=== PATIENT | male | born 1995 | race Two or more races ===

== ENCOUNTER 2024-02-28 04:46 | Emergency (ER) | payer OTHER ==
[~2024-02-28] VITALS: Ht 175.3 cm; Wt 75.0 kg
[2024-02-28 05:10] VITALS: PULSE 108; RESP 22; O2SAT 97
[2024-02-28] MEDS: SODIUM CHLORIDE 0.9% 1,000 ML IV ONE ×2 (05:25→07:56)
[2024-02-28] MEDS: LORazepam 2MG/ML-1ML VIAL IV ONE (05:25)
[2024-02-28 05:49] LABS: Chloride 103 mmol/L (98-107); Potassium 3.4 mmol/L (3.5-5.1); Sodium 138 mmol/L (136-145)
[2024-02-28 05:50] LABS: Anion Gap 16 (5-15); Calcium 9.6 mg/dL (8.7-10.4); Carbon Dioxide 19 mmol/L (20-30)
[2024-02-28 05:55] LABS: Glucose 109 mg/dL (74-106)
[2024-02-28 06:01] LABS: BUN/Creatinine Ratio 5.3 (10.0-20.0); Blood Urea Nitrogen < 5 mg/dL (9-23)
[2024-02-28 06:12] LABS: Blood Alcohol 136.8 mg/dL (<10)
[2024-02-28 07:45] VITALS: TEMP 98.9
[2024-02-28] MEDS: THIAMINE 100mg/ml INJ (200mg/2ml VIAL) IV ONE (07:56)
[2024-02-28 10:03] LABS: Amphetamine Screen, Urine Pos (NEGATIVE); Benzodiazephine Screen, Urine Neg (NEGATIVE)
[2024-02-28 10:04] LABS: Barbiturate Scree,Urine Neg (NEGATIVE); Cannabinoid Screen, Urine Neg (NEGATIVE); Cocaine Screen, Urine Neg (NEGATIVE); Opiate Scree,Urine Neg (NEGATIVE); Phencyclidine Screen, Urine Neg (NEGATIVE)
[2024-02-28] MEDS: LORazepam 0.5 MG TAB PO ONE (10:32)
[2024-02-28 10:44] VITALS: BP 152/99; PULSE 106; RESP 20; O2SAT 95
== END 2024-02-28 10:47 | disposition home or self-care (01) ==
LOC: ER 04:46 → EDBD 04:46 → ER 10:47
DX: F14.90 Cocaine use, unspecified, uncomplicated (principal); F10.10 Alcohol abuse, uncomplicated; F41.9 Anxiety disorder, unspecified; F17.210 Nicotine dependence, cigarettes, uncomplicated; F12.90 Cannabis use, unspecified, uncomplicated; Z88.0 Allergy status to penicillin; Y90.6 Blood alcohol level of 120-199 mg/100 ml
CPT/HCPCS: 36415; 80048; 80307; 80320; 93005; 96361; 96374; 96375; 99285; J2060; J3411; J7030; 96376

== ENCOUNTER 2025-01-23 04:18 | Emergency (ER) | payer MEDICAID, OTHER ==
[~2025-01-23] VITALS: Ht 172.7 cm; Wt 71.2 kg
--- NOTE | 2025-01-23 04:52 | ED.PDOC ---
Back pain HPI HPI Comments PATIENT C/O BILAT FEET PAIN X2 WEEKS. PATIENT STATES WAS RECENTLY DISCHARGED FROM THE HOSPITAL 2 WEEKS AGO FOR LIVER PROBLEMS WAS PRESCRIBED GABAPENTIN FOR BILATERAL FEET PAIN NEUROPATHY STATES THE GABAPENTIN IS NOT WORKING. SCHEDULE AN APPOINTMENT ON WITH HIS PCP. REQUESTING MEDICATION FOR HIS PAIN. Chief Complaint: Lower Extremity Time Seen by MD: 04:42 Reviewed Notes: Nurses Notes, Medications, Allergies Allergies: Coded Allergies: Penicillins (Verified Allergy, Unknown, 02/28/24) Information Source: Patient Mode of Arrival: Ambulatory Past Medical History PAST MEDICAL HISTORY: Denies Surgical History: Denies all surgeries Family History Family History: No family hx of Cancer, No family hx of DM, No family hx of Heart luis Social History Smoker: Cigarettes Alcohol: Occasionally Drugs: Cocaine, Marijuana Lives In: Home Constitutional: denies: chills, diaphoresis, fatigue, fever, malaise, sweats, weakness, others EENTM: denies: blurred vision, double vision, ear bleeding, ear discharge, ear drainage, ear pain, ear ringing, eye pain, eye redness, hearing loss, mouth pain, mouth swelling, nasal discharge, nose bleeding, nose congestion, nose pain, photophobia, tearing, throat pain, throat swelling, voice changes, others Respiratory: denies: cough, hemoptysis, orthopnea, SOB at rest, shortness of breath, SOB with excertion, stridor, wheezing, others Cardiovascular: denies: chest pain, dizzy spells, diaphoresis, Dyspnea on exertion, edema, irregular heart beat, left arm pain, lightheadedness, palpitations, PND, syncope, others Gastrointestinal: denies: abdomen distended, abdominal pain, blood streaked bowels, constipated, diarrhea, dysphagia, difficulty swallowing, hematemesis, melena, nausea, poor appetite, poor fluid intake, rectal bleeding, rectal pain, vomiting, others Genitourinary: denies: burning, dysuria, flank pain, frequency, hematuria, inco ntinence, penile discharge, penile sore, pain, testicle pain, testicle swelling, urgency, others Neurological: denies: dizziness, fainting, headache, left sided numbness, left sided weakness, numbness, paresthesia, pre-existing deficit, right sided numbness, right sided weakness, seizure, speech problems, tingling, tremors, weakness, others Musculoskeletal: reports: others (BILATERAL FOOT PAIN ); denies: back pain, gout, joint pain, joint swelling, muscle pain, muscle stiffness, neck pain Integumetry: denies: bruises, change in color, change in hair/nails, dryness, laceration, lesions, lumps, rash, wounds, others Allergic/Immunocompromised: denies: Difficulty Healing, Frequent Infections, Hives, Itching, others Hematologic/Lymphatic: denies: anemia, blood clots, easy bleeding, easy bruising, swollen glands, others Endocrine: denies: excessive hunger, excessive sweating, excessive thirst, excessive urination, flushing, intolerance to cold, intolerance to heat, unexplained weight gain, unexplained weight loss, others Psychiatric: denies: anxiety, bipolar disorder, depression, hopeless, panic disorder, schizophrenia, sleepless, suicidal, others Physical Exam General Appearance: No Apparent Distress, Normal HEENT: Pharynx Normal Neck: Full Range of Motion, Non-Tender Respiratory: Lungs Clear, No Respiratory Distress, Normal Breath Sounds Cardiovascular: No Murmur, Normal Peripheral Pulses, Regular Rate/Rhythm Breast Exam: Deferred Gastrointestinal: Non Tender, Soft Genitalia: Deferred Pelvic: Deferred Rectal: Deferred Extremities: Normal capillary refill, Normal inspection, Normal range of motion , Non-tender, No pedal edema Musculoskeletal : Apperance: Normal Neurologic: Alert, No Motor Deficits, Normal Affect, Normal Mood, No Sensory Deficits Cerebellar Function: Normal Reflexes: Normal Skin: Dry, Normal Color, Warm Lymphatic: No Adenopathy Was a procedure done? Was a procedure done?: No Back Pain Differential Dx Differential Diagnosis: Musculoskeletal Pain X-Ray, Labs, Meds, VS Vital Signs Date Time Temp Pulse Resp B/P (MAP) Pulse Ox O2 Delivery O2 Flow Rate FiO2 01/23/25 04:42 97.9 96 16 128/81 (97) 96 97.9 X-Ray, Labs, Meds, VS Comment PATIENT GIVEN LYRICA 75 MG P.O. ADVISED PATIENT TO CONTINUE HIS GABAPENTIN AND FOLLOW UP WITH HIS PCP SCHEDULED. ER RETURN PRECAUTIONS GIVEN PATIENT INDICATES UNDERSTANDING AGREES WITH DISCHARGE PLAN OF CARE. Time of 1ST Reevaluation: 04:52 Reevaluation 1ST: Unchanged Time of 2ND Reevaluation: 05:07 Reevaluation 2ND: Improved Patient Education/Counseling: Diagnosis, Treatment, Prognosis, Need For Follow Up Family Education/Counseling: Diagnosis, Treatment, Prognosis, Need For Follow Up SEPSIS Sepsis Screen Date sepsis recognized/suspect: Jan 23, 2025 Time Sepsis recognized/suspect: 0444 Recent Procedure: No On Antibiotic Therapy: No Respiratory Rate >20: No Heart Rate >90: Yes Temp<36 C (96.8 F) or >38.3 C: No SBP <90 or MAP <65 mmHG: No New Acute Mental Status Change: No Is the patient on CPAP, BIPAP,: No Physician Orders Pregabalin Capsule (Lyrica Capsule) (01/23/25 05:15) Vital Signs Date Time Temp Pulse Resp B/P (MAP) Pulse Ox O2 Delivery O2 Flow Rate FiO2 01/23/25 04:42 97.9 96 16 128/81 (97) 96 97.9 Departure 1 Departure Time of Disposition: 05:04 Impression: Primary Impression: Neuropathy Disposition: 01 HOME / SELF CARE / HOMELESS Condition: Stable Discharged With: Relative (Mother) Critical Care Note Critical Care Time?: No Stability Stability form required: KARLO Moore Jan 23, 2025 04:52
[2025-01-23 05:00] VITALS: BP 116/83; PULSE 92; RESP 16; TEMP 97.8; O2SAT 98
[2025-01-23] MEDS ORDERED: KETOROLAC TROMETH 60MG/2ML VIAL IM ONE (05:00)
[2025-01-23] MEDS: PREGABALIN CAPSULE 75 MG CAP PO ONE (05:13)
== END 2025-01-23 05:22 | disposition home or self-care (01) ==
LOC: ER 04:18
DX: G62.9 Polyneuropathy, unspecified (principal); M79.671 Pain in right foot; M79.672 Pain in left foot; F17.210 Nicotine dependence, cigarettes, uncomplicated; Z88.0 Allergy status to penicillin